=== PATIENT | male | born 1940 | race Caucasian/White ===

== ENCOUNTER 2019-03-01 11:44 | Emergency (ER) | payer MEDICARE ==
[~2019-03-01] VITALS: Ht 162.6 cm; Wt 60.0 kg
[~2019-03-01 11:44] MED LIST: ASPI-903 PO; ASPI81TA; ATOR40TA68 PO; CARV6.25 PO; CARV6.2579; CLOP75TA27 PO; LISI10TA2; LOVA20TA; NITR0.4T39 SL; TAMS-14; TAMS-14 PO
[2019-03-01 12:12] VITALS: Ht 162.6 cm; Wt 60.0 kg
[2019-03-01] MEDS ORDERED: ASPIRIN 81 MG TAB PO ONE (12:30)
[2019-03-01 14:26] VITALS: BP 124/78; PULSE 68; RESP 18
== END 2019-03-01 14:29 | disposition home or self-care (01) ==
LOC: E/R 11:44
DX: I10 Essential (primary) hypertension (principal); Z79.01 Long term (current) use of anticoagulants; Z79.82 Long term (current) use of aspirin; Z87.891 Personal history of nicotine dependence
CPT/HCPCS: 36415; 71045; 80048; 84484; 85025; 93005